=== PATIENT | male | born 1955 | race Caucasian/White ===

== ENCOUNTER 2020-07-11 15:31 | Emergency (ER) | payer OTHER ==
[~2020-07-11] VITALS: Ht 172.7 cm; Wt 90.7 kg
[2020-07-11 15:47] VITALS: BP 157/94; Ht 172.7 cm; Wt 90.7 kg
== END 2020-07-11 17:45 | disposition home or self-care (01) ==
LOC: ED 15:31
DX: S61.112A Laceration without foreign body of left thumb with damage to nail, initial encounter (principal); E03.9 Hypothyroidism, unspecified; W31.2XXA Contact with powered woodworking and forming machines, initial encounter; Y93.89 Activity, other specified; Y92.89 Other specified places as the place of occurrence of the external cause; Y99.8 Other external cause status
CPT/HCPCS: 90715; J2001; Q0092